=== PATIENT | female | born 1970 | race Caucasian/White ===

== ENCOUNTER 2017-12-18 13:35 | Outpatient (CLI) | payer OTHER | END 2017-12-18 13:36 | disposition home or self-care (01) | LOC: BICMAMMO 13:35 | PROVIDERS: ATTEND Obstetrics & Gynecology | DX: Z12.31 Encounter for screening mammogram for malignant neoplasm of breast (principal); N63.10 Unspecified lump in the right breast, unspecified quadrant | CPT/HCPCS: 77063; 77067 ==

== ENCOUNTER 2017-12-19 13:01 | Outpatient (CLI) | payer OTHER | END 2017-12-19 13:02 | disposition home or self-care (01) | LOC: BICMAMMO 13:01 | PROVIDERS: ATTEND Obstetrics & Gynecology | DX: C50.511 Malignant neoplasm of lower-outer quadrant of right female breast (principal) | CPT/HCPCS: 19083; 88305; 88341; 88342; 88360; G0279 ==

== ENCOUNTER 2018-01-13 08:58 | Outpatient (CLI) | payer OTHER ==
[2018-01-13 09:29] LABS: #Basophils 0.1 thou/uL (0.0-0.2); #Eosinphils 0.1 thou/uL (0.0-0.7); #Lymphocytes 1.4 thou/uL (1.20-3.40); #Monocytes 0.3 thou/uL (0.11-0.59); #Neutrophils 2.8 thou/uL (1.40-6.50); %Basophils 1.8 % (0.0-1.0); %Eosinophils 1.6 % (0.0-10.0); %Lymphocytes 30.6 % (21.0-51.0); %Monocytes 5.8 % (0.0-10.0); %Neutrophils 60.2 % (42.0-75.0); Hemoglobin 15.3 g/dL (12.0-16.0); Mean Corpuscular HGB CONC 34.3 g/dL (32.0-36.0); Mean Corpuscular Hemoglobin 34.5 pg (27.0-31.0); Mean Platelet Volume 6.8 fL (7.4-10.4); Platelet Count 261 thou/uL (130-400); RBC Distribution Width 10.7 % (11.5-14.5); Red Blood Cell (RBC) Count 4.45 mill/uL (4.20-5.40); White Blood Cell (WBC) Count 4.6 thou/uL (4.8-10.8)
[2018-01-13 09:51] LABS: Anion Gap 15 mmol/L (10-20); BUN (Urea Nitrogen) 4 mg/dL (7.0-18.7); Calc. Creatinine Clearance 0 mL/min (70-130); Calcium 9.6 mg/dL (7.8-10.44); Carbon Dioxide 24 mmol/L (22-29); Chloride 103 mmol/L (98-107); Estimated GFR-MDRD 89; Glucose 96 mg/dL (70-105); Sodium 138 mmol/L (136-145)
== END 2018-01-13 08:59 | disposition home or self-care (01) ==
LOC: LABBT 08:58
PROVIDERS: ATTEND Surgery
DX: Z01.818 Encounter for other preprocedural examination (principal); C50.911 Malignant neoplasm of unspecified site of right female breast
CPT/HCPCS: 80048; 85025; 93005; 93010

== ENCOUNTER 2018-01-20 06:54 | Day surgery (SDC) | payer OTHER ==
[2018-01-13 09:24] VITALS: BMI 21.0
[2018-01-20] MEDS ORDERED: CEFAZOLIN/Water 2 GM/20 ML SYRINGE ONE (10:03)
[2018-01-20] MEDS ORDERED: Midazolam HCl 2 mg/2 ml Vial ONE (11:22)
[2018-01-20] MEDS ORDERED: Fentanyl 100 MCG/2 ML VIAL ONE ×2 (11:22→13:50)
[2018-01-20] MEDS ORDERED: Lidocaine 2% 10 ML INJ ONE (11:42)
[2018-01-20] MEDS ORDERED: Bupivacaine/Epinephrine 0.25% 30 ML VIAL ONE (11:42)
--- NOTE | 2018-01-20 12:04 | NM ---
RIGHT BREAST LYMPHOSCINTIGRAPHY: DATE: . HISTORY: Malignant neoplasm right breast. RADIOPHARMACEUTICAL: 0.4 mCi Technetium 99m filtered sulfur colloid subcutaneously and intradermally. FINDINGS: Technetium 99m filtered sulfur colloid was injected in the right periareolar region in 4 separate ali quots. Immediate anterior and lateral imaging was performed. There is a focal area of uptake seen w ithin the right axillary tail region likely corresponding to sentinel lymph node. This area was chris ed, and the patient was transported to surgery for excisional biopsy and axillary lymph node dissecti on. IMPRESSION: Focal area of increased uptake in the right axilla likely corresponding to sentinel lymph node. POS: CHEKO
[2018-01-20] MEDS ORDERED: Ketorolac Tromethamine 30 MG/ML VIAL ONE (12:10)
[2018-01-20] MEDS ORDERED: ePHEDrine/0.9% NaCl/PF SYRINGE 50 mg/10 ml ONE (12:10)
[2018-01-20] MEDS ORDERED: Lidocaine 1% PF 5 ML VIAL ONE (12:10)
[2018-01-20] MEDS ORDERED: Dexamethasone 20 MG/5 ML VIAL ONE (12:10)
[2018-01-20] MEDS ORDERED: Ondansetron HCl/PF 4 MG/2 ML Vial ONE (12:10)
[2018-01-20] MEDS ORDERED: PROPOFOL 200 MG/20 ML VIAL ONE (12:10)
[2018-01-20] MEDS ORDERED: HYDROcodone/Acetaminophen 5/325 mg Tablet ONE (14:48)
--- NOTE | 2018-01-20 16:39 | MMO ---
MAMMOGRAPHIC GUIDED NEEDLE AND WIRE LOCALIZATION OF A BIOPSY MARKER CLIP AND MASS RIGHT BREAST: 01/20/2018 HISTORY: Breast cancer. TECHNIQUE: The procedure, including the risks and complications, were explained to the patient, and informed con sent was obtained. The localization clip and mass in the right breast were localized in a lateral me dial projection. The area was meticulously prepped and draped in the usual sterile fashion. The skin and subcutaneous tissues were infiltrated with buffered 1% Lidocaine for local anesthesia. A 7 cm Conrad localization needle and guide wire were advanced into the right breast. CC projection w as performed. The needle was slightly withdrawn, and the wire was deployed. Final images demonstrat e the localization wire and needle posterior to the biopsy marker clip, but the previously biopsied m ass is located posterior to both the biopsy marker clip and the localization needle. A dry, sterile dressing was placed. The patient was transported to nuclear medicine for lymphoscintigraphy prior to excisional biopsy. The patient tolerated the procedure well and without immediate complication. The findings were discussed with Dr. Hampton post procedure, including a description of the mass in r elation to the needle, as well as the biopsy marker clip. IMPRESSION: Technically successful needle and wire localization of a right breast mass. CODE CR POS: CHEKO
--- NOTE | 2018-01-20 16:47 | MMO ---
SPECIMEN MAMMOGRAM: 01/20/2018 HISTORY: The patient has a post biopsy right breast mass with a localization clip in place. The pathologic di agnosis is right breast cancer. FINDINGS: A single specimen mammogram is submitted for interpretation. The localization needle and guide wire are not in place within the specimen; however, the biopsy marker clip, as well as an increased densit y area posterior to the biopsy marker clip, as well as the mass noted on the mammogram, are also seen within the obtained specimen. These findings were discussed with surgical staff and Dr. Hampton, in the operating room, by Precious, the gi tech, at this time. IMPRESSION: Specimen mammogram demonstrating biopsy marker clip as well as mass and increased density which was n oted on needle and wire localization mammograms. CODE CR POS: CHEKO
--- NOTE | 2018-01-21 15:10 | OP ---
DATE OF PROCEDURE: 01/20/2018 PREOPERATIVE DIAGNOSIS: Right breast invasive ductal cell carcinoma. POSTOPERATIVE DIAGNOSIS: Right breast invasive ductal cell carcinoma. PROCEDURES PERFORMED: 1. Right breast partial mastectomy after needle localization. 2. Right deep axillary node biopsy (sentinel node protocol). SURGEON: Archie Hampton M.D. ANESTHESIA: General. ESTIMATED BLOOD LOSS: Minimal. COMPLICATIONS: None. SPECIMEN: Right breast mass marked with two short superior, one long lateral and sent to path for fi nal diagnosis. [place] node sent for final diagnosis. TECHNIQUE: The patient was taken to the operating room and placed supine on the table. After genera l anesthetic was obtained, the right breast, axilla, arm were all prepped and draped in a sterile fas hion. The patient previously had needle localization wire placed in the area of previous biopsy in t he right breast as well as lymphoscintigraphy showing uptake in the right axilla. A curved incision was made below the hairline in the right axilla. Cautery was used to dissect down through the clavip ectoral fascia. A blue node was found (5 mL of methylene blue dye had been infiltrated under the rig ht nipple and massaged for 10 minutes prior to the procedure). This area had increased uptake with t he Neoprobe. After it was removed, the background counts dropped to near 0. Wound is irrigated and closed using 3-0 Vicryl, 4-0 Monocryl, and Dermabond. Next, a transverse incision was made where the needle localization wire and enters the right breast. Flaps are raised superior, medially, inferior ly, laterally around the end of the needle localization wire. The specimen was sent to the specimen x-ray reveals the previous clip to be in the specimen. The wound was irrigated. Local anesthetic is applied and the wound was closed using 3-0 Vicryl, 4-0 Monocryl, and Dermabond. The patient was en route to recovery in stable condition. All instrument counts, needle counts, and lap counts were cor rect.
== END 2018-01-20 15:24 | disposition home or self-care (01) ==
LOC: SDC 06:54
PROVIDERS: ATTEND Surgery
PROC: 0HBT0ZZ Excision of Right Breast, Open Approach (ICD-10-PCS; principal; 2018-01-20)
PROC: 07B50ZX Excision of Right Axillary Lymphatic, Open Approach, Diagnostic (ICD-10-PCS; principal; 2018-01-20)
DX: C50.511 Malignant neoplasm of lower-outer quadrant of right female breast (principal); F17.200 Nicotine dependence, unspecified, uncomplicated; Z17.0 Estrogen receptor positive status [ER+]
CPT/HCPCS: 19281; 76098; 78195; 88307; 88331; 88333; 88334; 88342; 96374; A9541; J1100; J1885; J2001; J2250; J2405; J2704; J3010; Q9968

== ENCOUNTER 2019-01-22 09:32 | Outpatient (CLI) | payer OTHER ==
--- NOTE | 2019-01-22 10:08 | MMO ---
Bilateral MAMMO Bilat Diag [facility]. CLINICAL HISTORY: Patient is 48 years old and is seen for diagnostic exam. The patient has the following family history of breast cancer: paternal aunt. The patient has no personal history of cancer. The patient has a history of right Lumpectomy in January, - malignant and right Ultrasound Guided Core Biopsy in Dec, 2017 - malignant. VIEWS: The views performed were: bilateral craniocaudal with tomosynthesis; bilateral mediolateral oblique with tomosynthesis; and bilateral mediolateral. FILMS COMPARED: The present examination has been compared to prior imaging studies performed at [facility] on 12/18/2017 and 12/19/2017. MAMMOGRAM FINDINGS: There are scattered fibroglandular densities. There are new post operative changes seen in the right breast. There are no suspicious masses, suspicious calcifications, or new areas of architectural distortion. IMPRESSION: THERE IS NO MAMMOGRAPHIC EVIDENCE OF MALIGNANCY. A ROUTINE FOLLOW-UP MAMMOGRAM IN 1 YEAR IS RECOMMENDED. THE RESULTS OF THIS EXAM WERE SENT TO THE PATIENT. ACR BI-RADS Category 2 - Benign finding MAMMOGRAPHY NOTE: 1. A negative mammogram report should not delay a biopsy if a dominant of clinically suspicious mass is present. 2. Approximately 10% to 15% of breast cancers are not detected by mammography. 3. Adenosis and dense breasts may obscure an underlying neoplasm.
== END 2019-01-22 09:33 | disposition home or self-care (01) ==
LOC: BICMAMMO 09:32
PROVIDERS: ATTEND Internal Medicine Hematology & Oncology
DX: C50.511 Malignant neoplasm of lower-outer quadrant of right female breast (principal); Z98.890 Other specified postprocedural states
CPT/HCPCS: 77066; G0279

== ENCOUNTER 2020-01-25 10:06 | Outpatient (CLI) | payer OTHER ==
--- NOTE | 2020-01-25 10:41 | MMO ---
Bilateral MAMMO Bilat Diag [facility]. CLINICAL HISTORY: Patient is 49 years old and is seen for diagnostic exam. The patient has the following family history of breast cancer: paternal aunt. The patient has no personal history of cancer. The patient has a history of right Lumpectomy in January, - malignant and right Ultrasound Guided Core Biopsy in Dec, 2017 - malignant. VIEWS: The views performed were: bilateral craniocaudal with tomosynthesis; bilateral mediolateral oblique with tomosynthesis; and bilateral mediolateral with tomosynthesis. FILMS COMPARED: The present examination has been compared to prior imaging studies performed at [facility] on 12/18/2017, 12/19/2017 and 01/22/2019. This study has been interpreted with the assistance of computer-aided detection. MAMMOGRAM FINDINGS: There are scattered fibroglandular densities. There is a stable area of skin thickening and a stable post operative change seen in the right breast. There are no suspicious masses, suspicious calcifications, or new areas of architectural distortion. IMPRESSION: THERE IS NO MAMMOGRAPHIC EVIDENCE OF MALIGNANCY. A ROUTINE FOLLOW-UP MAMMOGRAM IN 1 YEAR IS RECOMMENDED. THE RESULTS OF THIS EXAM WERE SENT TO THE PATIENT. ACR BI-RADS Category 2 - Benign finding MAMMOGRAPHY NOTE: 1. A negative mammogram report should not delay a biopsy if a dominant of clinically suspicious mass is present. 2. Approximately 10% to 15% of breast cancers are not detected by mammography. 3. Adenosis and dense breasts may obscure an underlying neoplasm. Reported by: SIMON MORALES MD Electonically Signed: [id number]
== END 2020-01-25 10:07 | disposition home or self-care (01) ==
LOC: BICMAMMO 10:06
PROVIDERS: ATTEND Internal Medicine Hematology & Oncology
DX: C50.511 Malignant neoplasm of lower-outer quadrant of right female breast (principal); Z80.3 Family history of malignant neoplasm of breast
CPT/HCPCS: 77066; G0279

== ENCOUNTER 2021-01-26 10:24 | Outpatient (CLI) | payer OTHER | END 2021-01-26 10:25 | disposition home or self-care (01) | LOC: BICMAMMO 10:24 | PROVIDERS: ATTEND Internal Medicine Hematology & Oncology | DX: Z08 Encounter for follow-up examination after completed treatment for malignant neoplasm (principal); Z85.3 Personal history of malignant neoplasm of breast | CPT/HCPCS: 77066; G0279 ==

== ENCOUNTER 2021-07-12 09:29 | Outpatient (CLI) | payer OTHER ==
[2021-07-12 10:53] LABS: #Basophils 0.1 thou/uL (0.0-0.2); #Eosinphils 0.1 thou/uL (0.0-0.7); #Lymphocytes 1.3 thou/uL (1.20-3.40); #Monocytes 0.5 thou/uL (0.11-0.59); #Neutrophils 4.9 thou/uL (1.40-6.50); %Basophils 0.9 % (0.0-1.0); %Lymphocytes 19.8 % (21.0-51.0); %Monocytes 6.7 % (0.0-10.0); %Neutrophils 71.6 % (42.0-75.0); Hemoglobin 13.4 g/dL (12.0-16.0); Mean Corpuscular HGB CONC 33.6 g/dL (32.0-36.0); Mean Corpuscular Hemoglobin 33.8 pg (27.0-31.0); Mean Platelet Volume 6.7 fL (7.4-10.4); Platelet Count 293 thou/uL (130-400); RBC Distribution Width 10.7 % (11.5-14.5); Red Blood Cell (RBC) Count 3.96 mill/uL (4.20-5.40); White Blood Cell (WBC) Count 6.8 thou/uL (4.8-10.8)
[2021-07-12 14:00] LABS: SARS-CoV-2 PCR by NAA Not Detected (NotDetected)
== END 2021-07-12 09:30 | disposition home or self-care (01) ==
LOC: LAB 09:29
PROVIDERS: ATTEND Obstetrics & Gynecology
DX: Z01.812 Encounter for preprocedural laboratory examination (principal); N84.0 Polyp of corpus uteri; N93.9 Abnormal uterine and vaginal bleeding, unspecified; Z20.822 Contact with and (suspected) exposure to COVID-19
CPT/HCPCS: 85025; 86850; 86900; 86901; U0003; U0005

== ENCOUNTER 2022-01-29 09:55 | Outpatient (CLI) | payer BC | END 2022-01-29 09:56 | disposition home or self-care (01) | LOC: BICMAMMO 09:55 | PROVIDERS: ATTEND Internal Medicine Hematology & Oncology | DX: C50.511 Malignant neoplasm of lower-outer quadrant of right female breast (principal) | CPT/HCPCS: 77066; G0279 ==

== ENCOUNTER 2023-08-09 14:08 | Outpatient (CLI) | payer BC | END 2023-08-09 14:09 | disposition home or self-care (01) | LOC: ULT 14:08 | PROVIDERS: ATTEND Family Medicine | DX: R22.0 Localized swelling, mass and lump, head (principal) | CPT/HCPCS: 76536 ==

== ENCOUNTER 2023-08-16 12:58 | Outpatient (CLI) | payer BC | END 2023-08-16 12:59 | disposition home or self-care (01) | LOC: BICCT 12:58 | PROVIDERS: ATTEND Family Medicine | DX: R22.1 Localized swelling, mass and lump, neck (principal); K11.9 Disease of salivary gland, unspecified | CPT/HCPCS: 70491 ==

== ENCOUNTER 2023-09-02 14:07 | Outpatient (CLI) | payer BC ==
[2023-09-02 15:17] LABS: Hematocrit 37.9 % (34.9-44.5)
== END 2023-09-02 14:08 | disposition home or self-care (01) ==
LOC: LABBT 14:07
PROVIDERS: ATTEND Otolaryngology Plastic Surgery within the Head & Neck
DX: Z01.818 Encounter for other preprocedural examination (principal); R22.1 Localized swelling, mass and lump, neck; K11.8 Other diseases of salivary glands
CPT/HCPCS: 85014; 93005; 93010

== ENCOUNTER 2023-09-04 08:19 | Day surgery (SDC) | payer BC ==
[2023-09-02 14:26] VITALS: BMI 23.8
[2023-09-04] MEDS ORDERED: EPINEPHrine 1 MG/ML VIAL ONE (09:35)
[2023-09-04] MEDS ORDERED: Lidocaine 1% (PF) 30 ML VIAL ONE (09:35)
[2023-09-04] MEDS ORDERED: PROPOFOL 20 ML ONE ×2 (09:44→10:22)
[2023-09-04] MEDS ORDERED: fentaNYL PF 100 MCG/2 ML SYRINGE ONE (09:44)
[2023-09-04] MEDS ORDERED: SUCCINYLCHOLINE/SOD CL,ISO/PF 200 MG/10 ML SYRINGE FS ONE (09:45)
[2023-09-04] MEDS ORDERED: Dexamethasone 4 mg/ml Vial ONE (09:45)
[2023-09-04] MEDS ORDERED: Ondansetron PF 4 MG/2 ML Vial ONE (09:45)
[2023-09-04] MEDS ORDERED: ePHEDrine Sulfate 50 MG/10 ML VIAL ONE (10:24)
[2023-09-04] MEDS ORDERED: CEFAZOLIN 1 GM VIAL ONE (10:31)
[2023-09-04] MEDS ORDERED: PROPOFOL 200 MG/20 ML VIAL ONE (10:40)
[2023-09-04] MEDS ORDERED: HYDROmorphone 2 MG/ML VIAL ONE (11:02)
[2023-09-04] MEDS ORDERED: Bacitracin Zinc Ointment 30 gm TUBE ONE (11:33)
[2023-09-04] MEDS ORDERED: Ondansetron ODT 4 MG TAB ONE (14:15)
== END 2023-09-04 14:41 | disposition home or self-care (01) ==
LOC: SDC 08:19
PROVIDERS: ATTEND Otolaryngology Plastic Surgery within the Head & Neck
PROC: 0CT90ZZ Resection of Left Parotid Gland, Open Approach (ICD-10-PCS; principal; 2023-09-04)
DX: D11.0 Benign neoplasm of parotid gland (principal); R22.1 Localized swelling, mass and lump, neck; R22.0 Localized swelling, mass and lump, head; Z85.3 Personal history of malignant neoplasm of breast; Z79.899 Other long term (current) drug therapy
CPT/HCPCS: 88305; 88307; C1889; J0171; J0690; J1100; J1170; J2001; J2405; J2704; Q0162

== ENCOUNTER 2024-02-10 15:39 | Outpatient (CLI) | payer BC | END 2024-02-10 15:40 | disposition home or self-care (01) | LOC: BICMAMMO 15:39 | PROVIDERS: ATTEND Family Medicine | DX: Z12.31 Encounter for screening mammogram for malignant neoplasm of breast (principal); Z80.3 Family history of malignant neoplasm of breast; Z91.89 Other specified personal risk factors, not elsewhere classified; Z98.890 Other specified postprocedural states | CPT/HCPCS: 77063; 77067 ==

== ENCOUNTER 2024-05-18 12:36 | Outpatient (CLI) | payer BC | END 2024-05-18 12:37 | disposition home or self-care (01) | LOC: BICCT 12:36 | PROVIDERS: ATTEND Internal Medicine | DX: C18.9 Malignant neoplasm of colon, unspecified (principal); K76.89 Other specified diseases of liver | CPT/HCPCS: 74177; 82565 ==

== ENCOUNTER 2024-06-05 09:30 | Inpatient (IN) | payer BC ==
[2024-06-05 09:51] VITALS: BMI 23.1
[2024-06-09] MEDS ORDERED: Midazolam HCl 2 mg/2 ml Vial ONE (12:26)
[2024-06-09] MEDS ORDERED: Bupivacaine 0.25% HCL 30 ML VIAL ONE (12:26)
[2024-06-09] MEDS ORDERED: fentaNYL 50 mcg/mL 1 mL Vial ONE ×2 (12:26→16:57)
[2024-06-09] MEDS ORDERED: fentaNYL PF 100 MCG/2 ML SYRINGE ONE ×3 (13:10→17:10)
[2024-06-09] MEDS ORDERED: PROPOFOL 20 ML ONE (13:10)
[2024-06-09] MEDS ORDERED: Rocuronium Bromide 10 MG/ML (10ML VIAL) ONE (13:10)
[2024-06-09] MEDS ORDERED: Lidocaine 1% PF 5 ML VIAL ONE (13:10)
[2024-06-09] MEDS ORDERED: Bupivacaine/Epinephrine 0.25% 30 ML VIAL ONE (13:16)
[2024-06-09] MEDS ORDERED: cefOXitin 2 GM VIAL ONE (14:38)
[2024-06-09] MEDS ORDERED: Dexamethasone 20 MG/5 ML VIAL ONE (14:56)
[2024-06-09] MEDS ORDERED: SUGAMMADEX SODIUM 200 MG/2 ML VIAL ONE (15:10)
[2024-06-09] MEDS ORDERED: Ondansetron PF 4 MG/2 ML Vial ONE (16:58)
[2024-06-09] MEDS ORDERED: Promethazine HCl 25 MG/ML VIAL IM PRN (17:03)
[2024-06-09] MEDS ORDERED: Naloxone HCl 0.4 mg/ml Vial IVP PRN (17:03)
[2024-06-09] MEDS ORDERED: Morphine 4 MG/ML VIAL SLOW IVP PRN (17:03)
[2024-06-09] MEDS ORDERED: hydrALAZINE 20 MG/ML VIAL SLOW IVP PRN (17:03)
[2024-06-09] MEDS ORDERED: Ipratropium/Albuterol 3 ML NEB NEB PRN (17:03)
[2024-06-09] MEDS ORDERED: HYDROmorphone 0.5 MG/0.5 ML SYRINGE ONE (17:49)
[2024-06-09] MEDS ORDERED: Ketorolac Tromethamine 30 MG (1 mL) VIAL ONE (17:52)
[2024-06-09] MEDS: Ketorolac Tromethamine 30 MG (1 mL) VIAL IVP PRN (17:55)
[2024-06-09] MEDS: traMADol HCl 50 MG TAB PO SCH (18:59)
[2024-06-09] MEDS: Famotidine 20 MG TAB PO SCH (20:57)
[2024-06-09] MEDS: Famotidine/PF 20 mg/2ml Vial SLOW IVP SCH (20:57)
[2024-06-09] MEDS: D5 1/2 NS w/20 mEq KCL 1,000 ML IV SCH (21:00)
[2024-06-09] MEDS: cefOXitin Sodium 1 GM in Sodium Chloride 0.9% 100 ML IVPB SCH (22:09)
[2024-06-09] MEDS: Acetaminophen 500 MG TAB PO SCH (22:09)
[2024-06-09] MEDS: Ondansetron PF 4 MG/2 ML Vial IVP PRN (22:09)
[2024-06-09] MEDS: oxyCODONE 5 MG TAB PO PRN (22:10)
[2024-06-10 05:50] LABS: #Basophils 0.04 10x3/uL (0.0-0.2); #Eosinophils Less than 0.03 10x3/uL (0.0-0.7); %Basophils 0.3 % (0.0-1.0); %Lymphocytes 4.2 % (21.0-51.0); %Monocytes 6.5 % (0.0-10.0); %Neutrophils 88.6 % (42.0-75.0); Hematocrit 35.9 % (36.0-47.0); Hemoglobin 12.6 g/dL (12.0-16.0); Mean Corpuscular HGB CONC 35.1 g/dL (32.0-36.0); Mean Corpuscular Hemoglobin 34.6 pg (27.0-31.0); Mean Corpuscular Volume 98.6 fL (78.0-98.0); Mean Platelet Volume 10.1 fL (7.4-10.4); Platelet Count 257 10x3/uL (130-400); RBC Distribution Width 11.2 % (11.5-14.5); Red Blood Cell (RBC) Count 3.64 mill/uL (4.20-5.40)
[2024-06-10 06:04] LABS: Anion Gap 12 mmol/L (10-20); BUN (Urea Nitrogen) 4 mg/dL (9.8-20.1); Calc. Creatinine Clearance 86 mL/min (70-130); Calcium 8.8 mg/dL (7.8-10.44); Carbon Dioxide 23 mmol/L (22-29); Chloride 100 mmol/L (98-107); Estimated GFR 99; Glucose 147 mg/dL (70-105); Potassium 4.5 mmol/L (3.5-5.1); Sodium 130 mmol/L (136-145)
[2024-06-10] MEDS: Sodium Chloride 0.9% 1,000 ML IV SCH (06:41)
[2024-06-10] MEDS: Enoxaparin 40 MG (0.4 mL) SYRINGE SC SCH (08:39)
[2024-06-10] MEDS: Cholecalciferol 1,000 UNITS (25 MCG) TAB PO SCH (08:39)
[2024-06-11 08:31] VITALS: BP 153/93; TEMP 98.9
== END 2024-06-11 10:00 | disposition home or self-care (01) | DRG 331 ==
LOC: EDSTATUS 06-09 09:30 → SURG A 06-09 10:56 → SURG B 06-09 18:12
PROVIDERS: ADMIT Surgery; ATTEND Surgery
PROC: 0DBF4ZZ Excision of Right Large Intestine, Percutaneous Endoscopic Approach (ICD-10-PCS; principal; 2024-06-09)
PROC: 8E0W4CZ Robotic Assisted Procedure of Trunk Region, Percutaneous Endoscopic Approach (ICD-10-PCS; 2024-06-09)
DX: K63.89 Other specified diseases of intestine (principal); Z98.890 Other specified postprocedural states; Z79.899 Other long term (current) drug therapy; F17.210 Nicotine dependence, cigarettes, uncomplicated
CPT/HCPCS: 36415; 36416; 80048; 85025; 88305; 88307; A4314; J0665; J0694; J1100; J1650; J1885; J2250; J2405; J2704; J3010; J3480; J3490; J7030

== ENCOUNTER 2024-06-05 09:31 | Outpatient (CLI) | payer BC ==
[2024-06-05 10:30] LABS: #Basophils 0.06 10x3/uL (0.0-0.2); %Eosinophils 0.5 % (0.0-10.0); %Lymphocytes 17.9 % (21.0-51.0); %Monocytes 6.6 % (0.0-10.0); %Neutrophils 73.7 % (42.0-75.0); Hematocrit 43.7 % (36.0-47.0); Hemoglobin 15.1 g/dL (12.0-16.0); Mean Corpuscular HGB CONC 34.6 g/dL (32.0-36.0); Mean Corpuscular Hemoglobin 33.8 pg (27.0-31.0); Mean Corpuscular Volume 97.8 fL (78.0-98.0); Mean Platelet Volume 9.5 fL (7.4-10.4); Platelet Count 298 10x3/uL (130-400); RBC Distribution Width 11.3 % (11.5-14.5); Red Blood Cell (RBC) Count 4.47 mill/uL (4.20-5.40)
[2024-06-05 10:49] LABS: Hemoglobin A1c 4.9 % (4.0-6.0)
[2024-06-05 10:51] LABS: ALT (SGPT) 14 U/L (8-55); AST (SGOT) 18 U/L (5-34); Albumin 4.8 g/dL (3.5-5.0); Alkaline Phosphatase 95 U/L (40-110); Anion Gap 15 mmol/L (10-20); BUN (Urea Nitrogen) 6 mg/dL (9.8-20.1); Bilirubin, Total 0.5 mg/dL (0.2-1.2); Calc. Creatinine Clearance 0 mL/min (70-130); Calcium 10.2 mg/dL (7.8-10.44); Carbon Dioxide 26 mmol/L (22-29); Chloride 98 mmol/L (98-107); Estimated GFR 103; Glucose 92 mg/dL (70-105); Potassium 4.3 mmol/L (3.5-5.1); Protein, Total 7.8 g/dL (6.0-8.3); Sodium 135 mmol/L (136-145)
== END 2024-06-05 09:32 | disposition home or self-care (01) ==
LOC: LABBT 09:31
PROVIDERS: ATTEND Surgery
DX: Z01.812 Encounter for preprocedural laboratory examination (principal); K63.89 Other specified diseases of intestine
CPT/HCPCS: 80053; 83036; 85025